=== PATIENT | male | born 1940 | race Caucasian/White ===

== ENCOUNTER 2016-09-24 10:01 | Emergency (ER) | payer MEDICARE, OTHER | END 2016-09-24 12:49 | disposition home or self-care (01) | LOC: FER 10:01 | DX: B34.9 Viral infection, unspecified (principal); J32.9 Chronic sinusitis, unspecified; I10 Essential (primary) hypertension; E78.5 Hyperlipidemia, unspecified; N40.0 Benign prostatic hyperplasia without lower urinary tract symptoms; F17.229 Nicotine dependence, chewing tobacco, with unspecified nicotine-induced disorders; Z79.899 Other long term (current) drug therapy | CPT/HCPCS: 71020; 94640 ==